=== PATIENT | male | born 1950 ===

== ENCOUNTER 2018-04-21 09:31 | Emergency (ER) | payer OTHER ==
[2018-04-21] MEDS ORDERED: EnalaprilAT 1.25 mg/ml Inj IVP STA (11:00)
--- NOTE | 2018-04-21 11:03 | ED PDOC ---
HPI: Trauma/Fall - HPI Time Seen by Provider: 04/21/18 09:56 Chief Complaint (Nursing): Trauma Chief Complaint (Provider): Fall History Per: Patient History/Exam Limitations: no limitations Injury Occurred (Timing): Just Before Arrival Location Of Injury: Posterior: Head Associated Symptoms: denies: Dizziness, LOC Additional Complaint(s): 67 year old male with a history of HTN presents to the ED via EMS for evaluation after he lost his balance and fell down the stairs at a store and struck his head. He has not had a Tetanus shot in over 10 years. Denies dizziness, lightheadedness, headache, dysuria, chest pain and leg swelling. PMD: none - Fall Fall:Prior To Injury: Slipped, Lost Balance Past Medical History Reviewed: Historical Data, Nursing Documentation, Vital Signs Vital Signs: Last Vital Signs Temp 97.9 F 04/21/18 09:36 Pulse 61 04/21/18 10:46 Resp 15 04/21/18 10:46 BP 230/106 H 04/21/18 10:46 Pulse Ox 94 L 04/21/18 10:46 - Medical History PMH: Asthma, HTN, Hypercholesterolemia, Hyperlipidemia, Hypothyroidism Denies: HIV, Chronic Kidney Disease - Surgical History Surgical History: No Surg Hx - Family History Family History: States: Unknown Family Hx - Home Medications Home Medications: Ambulatory Orders Medication Instructions Recorded Aspirin [Ecotrin] 81 mg PO DAILY #30 ect 01/01/15 Chlorthalidone [Hygroton] 25 mg PO DAILY #0 tab 01/01/15 Pravastatin Sodium [Pravastatin] 20 mg PO HS #30 tab 01/01/15 amLODIPine [Norvasc] 10 mg PO DAILY #0 tab 01/01/15 Polyethylene Glycol 3350 [Miralax] 17 gm PO DAILY PRN #7 packet 01/24/15 Enalapril Maleate [Vasotec] 5 mg PO DAILY #30 tab 04/21/18 - Allergies Allergies/Adverse Reactions: Allergies Allergy/AdvReac Type Severity Reaction Status Date / Time No Known Allergies Allergy Verified 01/24/15 12:46 Review of Systems ROS Statement: Except As Marked, All Systems Reviewed And Found Negative Skin: Positive for: Bruising (hematoma to posterior head) Physical Exam - Reviewed Nursing Documentation Reviewed: Yes Vital Signs Reviewed: Yes - Physical Exam Appears: Positive for: Non-toxic, No Acute Distress Head Exam: Positive for: ATRAUMATIC (4 cm x 4 cm round hematoma on back of head), NORMAL INSPECTION, NORMOCEPHALIC Skin: Positive for: Warm, Dry Eye Exam: Positive for: Normal appearance, EOMI, PERRL Neck: Positive for: Normal, Painless ROM, Supple Cardiovascular/Chest: Positive for: Regular Rate, Rhythm. Negative for: Murmur Respiratory: Positive for: Normal Breath Sounds. Negative for: Respiratory Distress Gastrointestinal/Abdominal: Positive for: Normal Exam, Soft. Negative for: Tenderness Extremity: Positive for: Normal ROM. Negative for: Deformity Neurologic/Psych: Positive for: Alert, Oriented (x 3). Negative for: Motor/Sensory Deficits - Laboratory Results Result Diagrams: 04/21/18 11:15 04/21/18 11:15 - ECG O2 Sat by Pulse Oximetry: 94 (RA) Pulse Ox Interpretation: Normal Medical Decision Making Medical Decision Makin:53 Impression: head injury Initial Plan: --Head CT --BMP --CBC --Vasotec 2.5 mg IV Scribe Attestation: Documented by Jaja Amador, acting as a scribe for Hue Dial MD Provider Scribe Attestation: All medical record entries made by the Scribe were at my direction and personally dictated by me. I have reviewed the chart and agree that the record accurately reflects my personal performance of the history, physical exam, medical decision making, and the department course for this patient. I have also personally directed, reviewed, and agree with the discharge instructions and disposition. hypertension - BP better head injury - CT normal Disposition - Clinical Impression Clinical Impression: Head injury, Hypertension - Patient ED Disposition Is Patient to be Admitted: No Doctor Will See Patient In The: Office Counseled Patient/Family Regarding: Diagnosis, Need For Followup, Rx Given - Disposition Referrals: [facility] [Outside] [facility] [Outside] [facility] [Outside] Disposition: Routine/Home Disposition Time: 13:58 Condition: IMPROVED Prescriptions: Enalapril Maleate [Vasotec] 5 mg PO DAILY #30 tab Instructions: High Blood Pressure in Adults, Minor Head Injury (DC) Forms: [employer] ([place]ajik) - POA Present On Arrival: Falls Or Trauma
[2018-04-21] MEDS ORDERED: EnalaprilAT 1.25 mg/ml Inj IV ONE (11:15)
[2018-04-21 11:26] LABS: BASO # 0.1 K/uL (0.0-0.2); BASO % 0.7 % (0.0-2.0); EOS # 0.3 K/uL (0.0-0.7); EOS % 3.2 % (0.0-4.0); HEMOGLOBIN 13.5 g/dL (12.0-18.0); LYMPH # 1.1 K/uL (1.0-4.3); LYMPH % 12.6 % (20.0-40.0); MEAN CORPUSCULAR HEMOGLOBIN 27.7 pg (27.0-31.0); MEAN CORPUSCULAR HGB CONC 33.8 g/dL (33.0-37.0); MEAN PLATELET VOLUME 9.4 fl (7.2-11.7); MONO # 0.6 K/uL (0.0-0.8); MONO % 6.5 % (0.0-10.0); RBC 4.88 Mil/uL (4.40-5.90); RED CELL DISTRIBUTION WIDTH 15.2 % (11.5-14.5); WHITE BLOOD COUNT 9.1 K/uL (4.8-10.8)
[2018-04-21] MEDS ORDERED: EnalaprilAT 1.25 mg/ml Inj ONE (11:26)
[2018-04-21 11:34] LABS: BLOOD UREA NITROGEN 25 mg/dl (9-20); CALCIUM 9.3 mg/dL (8.4-10.2); GFR NON-AFRICAN AMERICAN 55
--- NOTE | 2018-04-21 13:27 | CT ---
Date of service: 04/21/2018 PROCEDURE: CT HEAD WITHOUT CONTRAST. HISTORY: fall onto back of head. hypertension COMPARISON: 01/01/2015 TECHNIQUE: Axial computed tomography images were obtained through the head/brain without intravenous contrast. Radiation dose: Total exam DLP = 927.18 mGy-cm. This CT exam was performed using one or more of the following dose reduction techniques: Automated exposure control, adjustment of the mA and/or kV according to patient size, and/or use of iterative reconstruction technique. FINDINGS: HEMORRHAGE: No intracranial hemorrhage. BRAIN: No mass effect or edema. Patchy deep and periventricular white matter lucency consistent with microvascular white matter ischemic change. No evidence of acute infarct. VENTRICLES: Unremarkable. No hydrocephalus. CALVARIUM: Unremarkable. PARANASAL SINUSES: Unremarkable as visualized. No significant inflammatory changes. MASTOID AIR CELLS: Unremarkable as visualized. No inflammatory changes. OTHER FINDINGS: None. IMPRESSION: No intracranial mass, hemorrhage or evidence of acute infarct. Age-appropriate microvascular white matter ischemic change.
[2018-04-21 14:31] VITALS: BP 170/91; PULSE 56; RESP 16; TEMP 98.3; O2SAT 97
[2018-04-21] MEDS ORDERED: Albuterol 0.042% Inhal Sol (1.25 mg/3 mL) UD ONE (22:15)
== END 2018-04-21 14:25 | disposition home or self-care (01) ==
LOC: H.ER 09:31
DX: S09.90XA Unspecified injury of head, initial encounter (principal); W10.9XXA Fall (on) (from) unspecified stairs and steps, initial encounter; Y92.513 Shop (commercial) as the place of occurrence of the external cause; E03.9 Hypothyroidism, unspecified; E78.00 Pure hypercholesterolemia, unspecified; I10 Essential (primary) hypertension